=== PATIENT | male | born 2000 | race African-American/Black ===

== ENCOUNTER 2024-05-26 15:15 | Inpatient (IN) ==
[2024-05-26] MEDS ORDERED: Rocuronium 50 mg VIAL 10 mg/ml 5 ml VIAL (50 mg) ONE (15:21)
[2024-05-26] MEDS ORDERED: Succinylcholine 200 mg VIAL 20 mg/ml 10 ml VIAL (200 mg) ONE (15:21)
[2024-05-26] MEDS: Etomidate 20 mg/10 ml 2 MG/ML 10 ml VIAL IV ONE (15:26)
[2024-05-26] MEDS: Succinylcholine 200 mg VIAL 20 mg/ml 10 ml VIAL (200 mg) IV ONE (15:26)
[2024-05-26] MEDS ORDERED: Propofol 10 mg/ml 100 ML BTL 1,000 MG/100 ML BTL ONE (15:29)
[2024-05-26] MEDS ORDERED: LORazepam 2 mg VIAL 1 ml ONE (15:45)
[2024-05-26] MEDS: Midazolam 2 mg/2 ml VIAL 1 mg/ml 2 ml VIAL (2 mg) IV SLOW PU ONE (15:46)
[2024-05-26] MEDS: LORazepam 2 mg VIAL 1 ml IV PUSH ONE (15:47)
[2024-05-26] MEDS ORDERED: Lorazepam PYXIS KEY PRN (15:49)
[2024-05-26] MEDS ORDERED: Etomidate 40 mg/20 ml (2 MG/ML) 20 ml VIAL (40 mg) ONE (15:49)
[2024-05-26] MEDS ORDERED: Midazolam 10 mg/10 ml VIAL 1 mg/ml 10 ml VIAL (10 mg) ONE (15:49)
[2024-05-26 16:00] LABS: Hemoglobin 14.5 g/dL (13.2-16.3); INR 0.96 (0.85-1.14); Mean Corpuscular Hemoglobin 27.9 pg (27-33); Mean Corpuscular Hgb Conc 29.7 g/dL (31-36); Mean Corpuscular Volume 94.2 fL (80-97); Mean Platelet Volume 9.7 fL (7.5-11.2); Platelet Count 501 10^3/uL (150-450); Red Cell Distribution Width 15.1 % (12-17); White Blood Count 38.5 10^3/uL (3.6-10.2)
[2024-05-26] MEDS ORDERED: cefTRIAXone 2 GM ADDV.VIAL 2 GM in NS 0.9% 100 ml BAG 100 ML IV ONE (16:12)
[2024-05-26 16:18] LABS: High Sens Troponin Baseline 18 pg/mL (<20)
[2024-05-26 16:28] LABS: Urine Benzodiazepine Screen Presumptive Positive (None Detect); Urine Buprenorphine Screen None Detected (None Detect); Urine Cannabinoids Screen Presumptive Positive (None Detect); Urine Fentanyl Screen None Detected (None Detect); Urine Hydrocodone Screen None Detected (None Detect); Urine Opiates Screen None Detected (None Detect)
[2024-05-26 16:30] LABS: ALT 131 U/L (7-52); AST 98 U/L (13-39); Albumin 5.1 g/dL (3.2-5.2); Albumin/Globulin Ratio 1.4 (1-3); Alkaline Phosphatase 162 U/L (35-149); Anion Gap 33 mmol/L (2-16); Blood Urea Nitrogen 18 mg/dL (6-24); CO2 Carbon Dioxide 7 mmol/L (22-32); Calcium 10.4 mg/dL (8.6-10.3); Chloride 98 mmol/L (101-111); Creatinine, Serum 1.58 mg/dL (0.67-1.17); Globulin 3.7 g/dL (2-4); Glucose 411 mg/dL (70-100); Lipase 38 U/L (11.0-82.0); Potassium 4.3 mmol/L (3.5-5.0); Sodium 138 mmol/L (135-145); Total Bilirubin 0.3 mg/dL (0.2-1.0); Total Protein 8.8 g/dL (6.4-8.9)
[2024-05-26] MEDS ORDERED: levETIRAcetam 1000MG IVPREMIX 1,000 MG/100 ML BAG ONE (16:30)
[2024-05-26] MEDS ORDERED: fentaNYL 100 mcg/2 ml 50 MCG/ML VIAL ONE (16:33)
[2024-05-26] MEDS: fentaNYL 100 mcg/2 ml 50 MCG/ML VIAL IV SLOW PU ONE ×2 (16:37→18:36)
[2024-05-26] MEDS: Midazolam PREMIXBAG 1 MG/ML NS 100 ML IV SCH (16:40)
[2024-05-26 16:41] LABS: ABS Basophils 0.3 10^3/uL (0.0-0.1); ABS Eosinophils 0.1 10^3/uL (0.0-0.5); ABS Lymphocytes 4.7 10^3/uL (1.0-4.8); ABS Monocytes 2.5 10^3/uL (0.0-1.1); ABS Nucleated RBC 0.02 10^3/ul; Eosinophil % 0.2 %; Lymphocyte % 12.1 %; Nucleated Red Blood Cells % 0.1 %/100WBC (0.0-0.8)
[2024-05-26 16:56] LABS: Urine Amorphous Crystals Present /HPF (Absent); Urine Appearance Turbid; Urine Bacteria Absent /HPF (Absent); Urine Bilirubin Negative (Negative); Urine Blood 3+ (Negative); Urine Color Colorless; Urine Glucose 4+ (>=1000 mg/dL) (Negative); Urine Ketones Negative (Negative); Urine Nitrite Negative (Negative); Urine Protein 1+ (>=30 mg/dL) (Negative); Urine Red Blood Cell Trace(0-2/hpf) /HPF (0-Trace); Urine Squamous Epithelial Cell Present /HPF (Absent); Urine Transitional Epithelial Present /HPF (Absent); Urine Urobilinogen Negative (Negative); Urine White Blood Cell Trace(0-5/hpf) /HPF (0-Trace)
[2024-05-26] MEDS: Propofol 10 mg/ml 100 ML BTL 1,000 MG/100 ML BTL IV SCH (17:27)
[2024-05-26] MEDS: Lactated Ringers 1000 ml BAG 1,000 ML IV SCH (17:30)
[2024-05-26] MEDS: levETIRAcetam 1000MG IVPREMIX 1,000 MG/100 ML BAG IVPB ONE (17:31)
[2024-05-26] MEDS: Iohexol 300 (CONTRAST) 10 ML SDV IV ONE (17:37)
[2024-05-26 17:40] LABS: Acetaminophen < 15 mcg/mL; Alcohol, S < 13 mg/dL (<13); C Reactive Protein 1.87 mg/L (<8.01); Salicylate < 2.50 mg/dL (<30)
[2024-05-26] MEDS: cefTRIAXone 2 gm/50 mL D5W 2 GM/50 ML BAG IV ONE (17:47)
[2024-05-26 17:48] LABS: Venous Bicarbonate HCO3 19.6 mmol/L (24-28)
[2024-05-26] MEDS ORDERED: Vancomycin per Pharmacy 1 EA NOTE FOLLOW UP PRN (18:11)
[2024-05-26 18:17] LABS: High Sensitivity Troponin 1 Hr 38 pg/mL (<20)
[2024-05-26] MEDS: Sodium Bicarbonate 8.4% SYR 50 ml SYRINGE IV ONE (18:36)
[2024-05-26 19:21] LABS: Creatine Kinase 1041 U/L (10-223)
[2024-05-26] MEDS: Vancomycin 1,000 MG in NS 0.9% 250 ml 250 ML IVPB ONE (19:30)
[2024-05-26] MEDS: fentaNYL INFUSION 50 mcg/mL VL 2,500 MCG/50 ML VIAL IV SCH (19:50)
[2024-05-26 19:51] LABS: Hematocrit 40.9 % (38-53); Hemoglobin 13.4 g/dL (13.2-16.3); Mean Corpuscular Hemoglobin 28.5 pg (27-33); Mean Corpuscular Hgb Conc 32.8 g/dL (31-36); Mean Corpuscular Volume 86.7 fL (80-97); Mean Platelet Volume 8.7 fL (7.5-11.2); Platelet Count 334 10^3/uL (150-450); Red Blood Count 4.71 10^6/uL (4.06-5.63); Red Cell Distribution Width 14.2 % (12-17); White Blood Count 24.8 10^3/uL (3.6-10.2)
[2024-05-26] MEDS: Insulin GLARGINE 100 un/ml 10 ml VIAL SUBCUT SCH (20:01)
[2024-05-26] MEDS: Pantoprazole VIAL 40 MG VIAL IV SCH (20:06)
[2024-05-26 20:18] LABS: ALT 109 U/L (7-52); Albumin 4.3 g/dL (3.2-5.2); Albumin/Globulin Ratio 1.3 (1-3); Alkaline Phosphatase 114 U/L (35-149); Anion Gap 9 mmol/L (2-16); Blood Urea Nitrogen 19 mg/dL (6-24); CO2 Carbon Dioxide 23 mmol/L (22-32); Calcium 9.2 mg/dL (8.6-10.3); Chloride 104 mmol/L (101-111); Creatinine, Serum 1.43 mg/dL (0.67-1.17); Globulin 3.3 g/dL (2-4); Glucose 197 mg/dL (70-100); Sodium 136 mmol/L (135-145); Total Bilirubin 0.4 mg/dL (0.2-1.0); Total Protein 7.6 g/dL (6.4-8.9)
[2024-05-26] MEDS: Acyclovir IV 650 MG in NS 0.9% 100 ml BAG 100 ML IVPB SCH (21:52)
[2024-05-27] MEDS: Dextrose 50% Syringe 50 ml 25 GM/50 ML SYRINGE IV PUSH PRN (00:06)
[2024-05-27] MEDS: Chlorhexidine MOUTHWASH 0.12% 15 ML UDC TOPICAL SCH (02:04)
[2024-05-27 02:26] LABS: Potassium Redraw 3.4 mmol/L (3.5-5.0)
[2024-05-27] MEDS: KCL 20 MEQ/100 ML IVPREMIX 20 MEQ/100 ML BAG IV SCH (03:25)
[2024-05-27] MEDS: Midazolam 5 mg/5 ml VIAL 1 mg/ml 5 ml VIAL (5 mg) IV SLOW PU PRN (04:03)
[2024-05-27] MEDS: levETIRAcetam 1000MG IVPREMIX 1,000 MG/100 ML BAG IVPB SCH (05:16)
[2024-05-27 05:41] LABS: Hematocrit 38.2 % (38-53); Hemoglobin 12.1 g/dL (13.2-16.3); Mean Corpuscular Hemoglobin 27.4 pg (27-33); Mean Corpuscular Hgb Conc 31.7 g/dL (31-36); Mean Corpuscular Volume 86.6 fL (80-97); Mean Platelet Volume 8.6 fL (7.5-11.2); Platelet Count 324 10^3/uL (150-450); Red Blood Count 4.41 10^6/uL (4.06-5.63); White Blood Count 20.9 10^3/uL (3.6-10.2)
[2024-05-27] MEDS: Vancomycin 1000 MG in NS 0.9% 250 ML IVPB SCH (05:45)
[2024-05-27 06:32] LABS: Creatinine, Serum 1.99 mg/dL (0.67-1.17); Potassium 3.9 mmol/L (3.5-5.0)
[2024-05-27 06:33] LABS: Albumin 3.9 g/dL (3.2-5.2); Albumin/Globulin Ratio 1.3 (1-3); Calcium 8.9 mg/dL (8.6-10.3); Globulin 2.9 g/dL (2-4); Magnesium 2.3 mg/dL (1.9-2.7); Total Bilirubin 0.5 mg/dL (0.2-1.0); Total Protein 6.8 g/dL (6.4-8.9); eGFR CKD-EPI 47.8 (>60)
[2024-05-27 07:24] LABS: ABS Basophils 0.1 10^3/uL (0.0-0.1); ABS Monocytes 2.7 10^3/uL (0.0-1.1); ABS Neutrophils 17.1 10^3/uL (1.5-7.6); Lymphocyte % 4.8 %
[2024-05-27] MEDS: D5LR 1000 ml BAG 1,000 ML IV SCH (10:41)
[2024-05-27] MEDS: Gadoteridol (CONTRAST) 279.3 MG/ML 10 ML IV ONE (13:56)
[2024-05-27] MEDS: fentaNYL 100 mcg/2 ml 50 MCG/ML VIAL IV SLOW PU PRN (16:59)
[2024-05-27] MEDS: cefTRIAXone 2 gm/50 mL D5W 2 GM/50 ML BAG IV SCH (19:08)
[2024-05-27] MEDS: Insulin GLARGINE 100 un/ml 10 ml VIAL SUBCUT SCH (20:02)
[2024-05-28 04:42] LABS: Hematocrit 35.6 % (38-53); Hemoglobin 11.8 g/dL (13.2-16.3); Mean Corpuscular Hemoglobin 28.7 pg (27-33); Mean Corpuscular Volume 86.9 fL (80-97); Mean Platelet Volume 8.5 fL (7.5-11.2); Platelet Count 287 10^3/uL (150-450); Red Cell Distribution Width 14.2 % (12-17)
[2024-05-28 05:25] LABS: Albumin 3.4 g/dL (3.2-5.2); Albumin/Globulin Ratio 1.3 (1-3); Calcium 9.2 mg/dL (8.6-10.3); Creatinine, Serum 2.23 mg/dL (0.67-1.17); Globulin 2.7 g/dL (2-4); Total Bilirubin 0.6 mg/dL (0.2-1.0); Total Protein 6.1 g/dL (6.4-8.9); Vancomycin Trough 17.5 mcg/mL; eGFR CKD-EPI 41.7 (>60)
[2024-05-28 06:04] LABS: ABS Basophils 0.1 10^3/uL (0.0-0.1); ABS Eosinophils 0.1 10^3/uL (0.0-0.5); ABS Lymphocytes 1.4 10^3/uL (1.0-4.8); ABS Monocytes 2.1 10^3/uL (0.0-1.1); ABS Neutrophils 11.3 10^3/uL (1.5-7.6); ABS Nucleated RBC 0.01 10^3/ul; Eosinophil % 0.7 %; Lymphocyte % 9.4 %
[2024-05-28] MEDS: fentaNYL 100 mcg/2 ml 50 MCG/ML VIAL IV SLOW PU PRN (08:28)
[2024-05-28] MEDS: fentaNYL 100 mcg/2 ml 50 MCG/ML VIAL ONE (08:29)
[2024-05-28] MEDS: Vancomycin Trough Check NOTE FOLLOW UP ONE (08:32)
[2024-05-28] MEDS: Furosemide 40 mg/4 ml IV VIAL IV ONE (10:12)
[2024-05-28 16:16] LABS: Calcium 9.7 mg/dL (8.6-10.3); Creatinine, Serum 1.81 mg/dL (0.67-1.17); Potassium 3.8 mmol/L (3.5-5.0); eGFR CKD-EPI 53.5 (>60)
[2024-05-28] MEDS: Heparin 5000 UNITS/ML 1 mL VIAL SUBCUT SCH (21:56)
[2024-05-29 04:52] LABS: Hemoglobin 11.3 g/dL (13.2-16.3); Mean Corpuscular Hemoglobin 28.7 pg (27-33); Mean Corpuscular Hgb Conc 33.2 g/dL (31-36); Mean Corpuscular Volume 86.5 fL (80-97); Mean Platelet Volume 8.7 fL (7.5-11.2); Platelet Count 283 10^3/uL (150-450); Red Blood Count 3.93 10^6/uL (4.06-5.63); Red Cell Distribution Width 13.6 % (12-17); White Blood Count 14.4 10^3/uL (3.6-10.2)
[2024-05-29 04:54] LABS: ABS Basophils 0.1 10^3/uL (0.0-0.1); ABS Eosinophils 0.3 10^3/uL (0.0-0.5); ABS Monocytes 1.7 10^3/uL (0.0-1.1); ABS Neutrophils 10.4 10^3/uL (1.5-7.6); Eosinophil % 1.9 %; Lymphocyte % 13.6 %
[2024-05-29 05:40] LABS: Calcium 8.8 mg/dL (8.6-10.3); Creatinine, Serum 1.33 mg/dL (0.67-1.17); Magnesium 1.4 mg/dL (1.9-2.7); Phosphorus 3.7 mg/dL (2.5-5.0); Potassium 3.5 mmol/L (3.5-5.0); Vancomycin Trough 4.8 mcg/mL; eGFR CKD-EPI 77.5 (>60)
[2024-05-29] MEDS: Vancomycin Trough Check NOTE FOLLOW UP ONE (05:46)
[2024-05-29] MEDS: Magnesium Sulfate 2 gm BAG 2 GM/50 ML BAG IVPB ONE ×2 (06:32→12:38)
[2024-05-29] MEDS ORDERED: Dextrose 50% Syringe 50 ml 25 GM/50 ML SYRINGE IV PUSH PRN (10:30)
[2024-05-30 08:56] LABS: ABS Basophils 0.1 10^3/uL (0.0-0.1); ABS Eosinophils 0.3 10^3/uL (0.0-0.5); ABS Lymphocytes 1.6 10^3/uL (1.0-4.8); ABS Monocytes 1.2 10^3/uL (0.0-1.1); ABS Neutrophils 4.3 10^3/uL (1.5-7.6); ABS Nucleated RBC 0.01 10^3/ul; Eosinophil % 3.6 %; Hematocrit 36.1 % (38-53); Hemoglobin 11.9 g/dL (13.2-16.3); Lymphocyte % 21.2 %; Mean Corpuscular Hemoglobin 28.3 pg (27-33); Mean Corpuscular Hgb Conc 32.9 g/dL (31-36); Mean Corpuscular Volume 86.1 fL (80-97); Mean Platelet Volume 8.8 fL (7.5-11.2); Nucleated Red Blood Cells % 0.1 %/100WBC (0.0-0.8); Platelet Count 313 10^3/uL (150-450); Red Cell Distribution Width 13.4 % (12-17); White Blood Count 7.5 10^3/uL (3.6-10.2)
[2024-05-30 09:14] LABS: Calcium 9.2 mg/dL (8.6-10.3); Creatinine, Serum 1.07 mg/dL (0.67-1.17); Magnesium 1.5 mg/dL (1.9-2.7); Potassium 3.8 mmol/L (3.5-5.0); eGFR CKD-EPI 100.6 (>60)
[2024-05-30] MEDS: Magnesium Sulf 4 GM/100 ML IV 4,000 MG/100 ML BAG IVPB ONE (10:16)
[2024-05-30 13:31] VITALS: BP 131/73
== END 2024-05-30 14:10 | DRG 720 ==
LOC: ED 15:15 → EDHOLD 17:35 → ICU 17:47 → MED 05-29 07:15
PROVIDERS: ADMIT Student in an Organized Health Care Education/Training Program; ATTEND Student in an Organized Health Care Education/Training Program